=== PATIENT | female | born 1965 | race American Indian/Alaskan Native ===

== ENCOUNTER 2021-01-01 23:49 | Emergency (ER) | payer OTHER ==
[2021-01-02] MEDS ORDERED: MORPHINE 4 MG/1 ML INJ IV ONE (02:26)
[2021-01-02] MEDS ORDERED: SODIUM CHLORIDE 0.9% 1000 ML 1,000 ML IV ONE (02:26)
[2021-01-02] MEDS ORDERED: KETOROLAC 30 MG/1 ML INJ IV ONE (02:26)
[2021-01-02] MEDS ORDERED: ONDANSETRON 4 MG/2 ML INJ IV ONE (02:26)
--- NOTE | 2021-01-02 03:49 | Cat Scan Report ---
CT ABDOMEN AND PELVIS WITHOUT IV CONTRAST INDICATION: Right flank pain, h/o kidney stones. COMPARISON: CT 11/04/2020 TECHNIQUE: All CT scans at this facility use dose modulation, automated exposure control, iterative reconstructi on or weight based dosing, when appropriate, to reduce radiation dose to as low as reasonably achieva ble. FINDINGS: Lung Bases: No significant abnormality. Skeletal System: No acute abnormality. ABDOMEN: Liver: No significant abnormality. Gallbladder: No significant abnormality. Bile Ducts: No significant abnormality. Pancreas: No significant abnormality. Spleen: No significant abnormality. Adrenals: No significant abnormality. Right Kidney: Chronic obstruction of the right kidney is again noted. The previously seen right perin ephric abscess is no longer visualized. There is mild diffuse right perinephric stranding. The right ureter is dilated down to the midportion. No nephrolithiasis. Left Kidney: No significant abnormality. Upper GI tract: No significant abnormality. Lymph Nodes: Retroperitoneal adenopathy is again noted. Aorta: No significant abnormality. Additional Findings: No significant abnormality. PELVIS: Colon: No acute abnormality. Urinary Bladder and Distal Ureters: No significant abnormality. Appendix: No significant abnormality. Lymph Nodes: No significant adenopathy. Additional Findings: None. IMPRESSION: 1. Persistent/chronic right hydroureteronephrosis with caliber change in the mid to distal ureter. A s suggested on the prior CT, this could be due to noncalcific debris causing chronic obstruction. Int rinsic ureteral lesion/neoplasm could have this appearance. Mild retroperitoneal adenopathy is stable . 2. Previously seen lateral right perinephric abscess is no longer visualized. There is right perinep hric stranding which is suggestive of pyelonephritis, possibly postobstructive. Signer Name: Homero Pride MD Signed: 01/02/2021 3:45 AM Workstation Name: [id number]
[2021-01-02 03:55] LABS: Alanine Aminotransferase 14 units/L (7-56); Albumin 3.6 g/dL (3.9-5); Blood Urea Nitrogen 13 mg/dL (7-17); Hemolysis Index 2
[2021-01-02 03:56] LABS: BUN/Creatinine Ratio 22
[2021-01-02] MEDS ORDERED: TAMSULOSIN 0.4 MG CAP PO ONE ×2 (03:58→06:30)
[2021-01-02] MEDS ORDERED: cefTRIAXone/NS 1 GM/50 ML 1 GM/50 ML BAG IV ONE (03:58)
--- NOTE | 2021-01-02 04:03 | Event Note ---
ED Screening Note Date of service: 01/02/21 Time: 03:25 ED Screening Note: Patient is a 55-year-old -Vin[place] female with a history of chronic kidney stones and hypertension who presents to the ED with complaint of acute onset persistent severe right flank pain that radiates to the right lower quadrant area for the last 1 week, worse in the last 2 days. Patient states that she has not been able to sleep because of worsening right flank pain. Patient also complains of nausea and vomiting. Patient states that she was diagnosed with kidney stones about a week ago by her primary care physician and was advised to come to the ED for evaluation. Patient states that she had no means of transportation to the ED and therefore came to the ED tonight for further evaluation because of worsening pain. Patient denies fever, chills, nausea, vomiting, hematuria, vaginal bleeding, vaginal discharge, traumatic injury, heavy lifting, chest pain or shortness of breath, diarrhea or change in vision, urinary frequency and urgency. This initial assessment/diagnostic orders/clinical plan/treatment(s) is/are subject to change based on patients health status, clinical progression and re- assessment by fellow clinical providers in the ED. Further treatment and workup at subsequent clinical providers discretion. Patient/guardian urged not to elope from the ED as their condition may be serious if not clinically assessed and managed. Initial orders include: CBC, CMP, UA, lipase, CT abdomen pelvis without contrast
[2021-01-02 04:04] LABS: Basophils % (Auto) 0.4 % (0.0-1.8); Hematocrit 34.1 % (30.3-42.9); Hemoglobin 11.3 gm/dl (10.1-14.3); Mean Corpuscular HGB Conc 33 % (30-34); Mean Corpuscular Volume 89 fl (79-97); Monocytes # (Auto) 0.8 K/mm3 (0.0-0.8); Monocytes % (Auto) 8.6 % (0.0-7.3); Platelet Count 310 K/mm3 (140-440); Red Blood Count 3.86 M/mm3 (3.65-5.03); Red Cell Distribution Width 16.2 % (13.2-15.2)
[2021-01-02 04:41] LABS: Bacteria,Urine 1+ /HPF (Negative); Bilirubin,Urine NEG (Negative); Blood,Urine SM (Negative); Color,Urine Yellow (Yellow); Mucus,Urine FEW /HPF; Urobilinogen,Urine < 2.0 mg/dL (<2.0)
--- NOTE | 2021-01-02 06:17 | Emergency Department Report ---
ED Abdominal Pain HPI - General Chief Complaint: Abdominal Pain Stated Complaint: RT FLANK PAIN Source: patient, EMS Mode of arrival: Ambulatory Limitations: No Limitations - History of Present Illness Initial Comments: Patient is a 55-year-old -Y[place]i female with a history of chronic kidney stones and hypertension who presents to the ED with complaint of acute onset persistent severe right flank pain that radiates to the right lower quadrant area for the last 1 week, worse in the last 2 days. Patient states that she has not been able to sleep because of worsening right flank pain. Patient also complains of nausea and vomiting. Patient states that she was diag nosed with kidney stones about a week ago by her primary care physician and was advised to come to the ED for evaluation. Patient states that she had no means of transportation to the ED and therefore came to the ED tonight for further evaluation because of worsening pain. Patient states that her urologist in [place], [place] had performed a biopsy on her right kidney and advised that she may be having cancer in the right kidney and that during her next appointment which is scheduled for December, she shall be informed on the next course of action. Patient denies fever, chills, nausea, vomiting, hematuria, vaginal bleeding, vaginal discharge, traumatic injury, heavy lifting, chest pain or shortness of breath, diarrhea or change in vision, urinary frequency and urgency. MD Complaint: abdominal pain, flank pain (Right flank pain), other (Nausea and vomiting; recent diagnosis of kidney stone) -: Sudden, week(s) (1 ) Location: RLQ, R flank Radiation: RLQ, R flank Migration to: no migration Severity: severe Severity scale (0 -10): 10 Quality: cramping, aching, sharp Consistency: constant Improves With: nothing Worsens With: nothing Associated Symptoms: denies other symptoms, nausea, vomiting, anorexia. denies: diarrhea, fever, chills, constipation, dysuria, hematemesis, hematochezia, melena, hematuria, syncope - Related Data Home Medications Medication Instructions Recorded Confirmed Last Taken hydroCHLOROthiazide [HCTZ] 25 mg PO QDAY 11/03/20 11/03/20 Unknown Previous Rx's Medication Instructions Recorded Last Taken Type AtorvaSTATin [Lipitor] 40 mg PO QHS #30 tablet 11/07/20 Unknown Rx Cyclobenzaprine HCl [Flexeril 5 MG 5 mg PO TID #30 11/07/20 Unknown Rx TAB] Losartan [Cozaar] 50 mg PO QDAY #30 tablet 11/07/20 Unknown Rx buPROPion SR [Wellbutrin SR] 150 mg PO BID #60 tablet 11/07/20 Unknown Rx Ketorolac [Toradol] 10 mg PO Q8H PRN #15 tablet 01/02/21 Unknown Rx Ondansetron [Zofran Odt] 4 mg PO Q8HR PRN #20 tab.rapdis 01/02/21 Unknown Rx Sulfamethoxazole/Trimethoprim 1 each PO Q12H #20 tablet 01/02/21 Unknown Rx [Bactrim DS TAB] Tamsulosin [Flomax] 0.4 mg PO QDAY #10 cap 01/02/21 Unknown Rx traMADoL [Ultram] 50 mg PO Q6HR PRN #12 tablet 01/02/21 Unknown Rx Allergies Allergy/AdvReac Type Severity Reaction Status Date / Time No Known Allergies Allergy Verified 11/03/20 21:24 ED Review of Systems ROS: Stated complaint: RT FLANK PAIN Other details as noted in HPI Constitutional: denies: chills, fever Eyes: denies: eye pain, eye discharge, vision change ENT: denies: ear pain, throat pain Respiratory: denies: cough, shortness of breath, wheezing Cardiovascular: denies: chest pain, palpitations Endocrine: no symptoms reported Gastrointestinal: abdominal pain (Right flank pain and right lower quadrant pain), nausea, vomiting. denies: diarrhea Genitourinary: denies: urgency, dysuria, discharge Musculoskeletal: denies: back pain, joint swelling, arthralgia Skin: denies: rash, lesions Neurological: denies: headache, weakness, paresthesias Psychiatric: denies: anxiety, depression Hematological/Lymphatic: denies: easy bleeding, easy bruising ED Past Medical Hx - Past Medical History Previous Medical History?: Yes Hx Hypertension: Yes Hx Heart Attack/AMI: No Hx Liver Disease: No Hx Renal Disease: Yes (Renal Abcess; Pyelonephritis) Hx Seizures: No Hx COPD: No Additional medical history: elevated cholesterol - Surgical History Past Surgical History?: Yes Hx Internal Defibrillator: No Additional Surgical History: Csection, UFE 2005 - Social History Smoking Status: Former Smoker - Medications Home Medications: Home Medications Medication Instructions Recorded Confirmed Last Taken Type hydroCHLOROthiazide [HCTZ] 25 mg PO QDAY 11/03/20 11/03/20 Unknown History AtorvaSTATin [Lipitor] 40 mg PO QHS #30 tablet 11/07/20 Unknown Rx Cyclobenzaprine HCl [Flexeril 5 MG 5 mg PO TID #30 11/07/20 Unknown Rx TAB] Losartan [Cozaar] 50 mg PO QDAY #30 tablet 11/07/20 Unknown Rx buPROPion SR [Wellbutrin SR] 150 mg PO BID #60 tablet 11/07/20 Unknown Rx Ketorolac [Toradol] 10 mg PO Q8H PRN #15 tablet 01/02/21 Unknown Rx Ondansetron [Zofran Odt] 4 mg PO Q8HR PRN #20 tab.rapdis 01/02/21 Unknown Rx Sulfamethoxazole/Trimethoprim 1 each PO Q12H #20 tablet 01/02/21 Unknown Rx [Bactrim DS TAB] Tamsulosin [Flomax] 0.4 mg PO QDAY #10 cap 01/02/21 Unknown Rx traMADoL [Ultram] 50 mg PO Q6HR PRN #12 tablet 01/02/21 Unknown Rx ED Physical Exam - General Limitations: No Limitations General appearance: alert, in no apparent distress - Head Head exam: Present: atraumatic, normocephalic, normal inspection - Eye Eye exam: Present: normal appearance, PERRL, EOMI Pupils: Present: normal accommodation - ENT ENT exam: Present: normal exam, normal orophraynx, mucous membranes moist, TM's normal bilaterally, normal external ear exam - Neck Neck exam: Present: normal inspection, full ROM - Respiratory Respiratory exam: Present: normal lung sounds bilaterally. Absent: respiratory distress, wheezes, rales, stridor, chest wall tenderness, accessory muscle use - Cardiovascular Cardiovascular Exam: Present: regular rate, normal rhythm, normal heart sounds. Absent: systolic murmur, diastolic murmur, rubs, gallop - GI/Abdominal GI/Abdominal exam: Present: soft, tenderness (Palpable right flank tenderness), normal bowel sounds. Absent: distended, guarding, rebound, hyperactive bowel sounds, hypoactive bowel sounds, organomegaly, bruit - Extremities Exam Extremities exam: Present: normal inspection, full ROM, normal capillary refill - Back Exam Back exam: Present: normal inspection, full ROM. Absent: tenderness, CVA tenderness (R), CVA tenderness (L), muscle spasm, paraspinal tenderness, vertebral tenderness - Neurological Exam Neurological exam: Present: alert, oriented X3, CN II-XII intact, normal gait, reflexes normal - Psychiatric Psychiatric exam: Present: normal affect, normal mood - Skin Skin exam: Present: warm, dry, intact, normal color. Absent: rash ED Course Vital Signs 01/02/21 01/02/21 01/02/21 02:19 03:03 03:04 Temperature 97.9 F Pulse Rate 69 Respiratory 20 20 20 Rate Blood Pressure 180/78 [Left] O2 Sat by Pulse 99 Oximetry ED Medical Decision Making - Lab Data Result diagrams: 01/02/21 02:35 01/02/21 02:35 - Radiology Data Radiology results: report reviewed, image reviewed [address] [address] Cat Scan Report Signed Patient: MARTÍN URIARTE MR#: [id number] : 1965 Acct:[id number] Age/Sex: 55 / F ADM Date: 01/01/21 Loc: ED Attending Dr: Ordering Physician: TRENTON VITALE Date of Service: 01/02/21 Procedure(s): CT abdomen pelvis wo con Accession Number(s): [id number] cc: TRENTON VITALE CT ABDOMEN AND PELVIS WITHOUT IV CONTRAST INDICATION: Right flank pain, h/o kidney stones. COMPARISON: CT 11/04/2020 TECHNIQUE: All CT scans at this facility use dose modulation, automated exposure control, iterative reconstruction or weight based dosing, when appropriate, to reduce radiation dose to as low as reasonably achievable. FINDINGS: Lung Bases: No significant abnormality. Skeletal System: No acute abnormality. ABDOMEN: Liver: No significant abnormality. Gallbladder: No significant abnormality. Bile Ducts: No significant abnormality. Pancreas: No significant abnormality. Spleen: No significant abnormality. Adrenals: No significant abnormality. Right Kidney: Chronic obstruction of the right kidney is again noted. The previously seen right perinephric abscess is no longer visualized. There is mild diffuse right perinephric stranding. The right ureter is dilated down to the midportion. No nephrolithiasis. Left Kidney: No significant abnormality. Upper GI tract: No significant abnormality. Lymph Nodes: Retroperitoneal adenopathy is again noted. Aorta: No significant abnormality. Additional Findings: No significant abnormality. PELVIS: Colon: No acute abnormality. Urinary Bladder and Distal Ureters: No significant abnormality. Appendix: No significant abnormality. Lymph Nodes: No significant adenopathy. Additional Findings: None. IMPRESSION: 1. Persistent/chronic right hydroureteronephrosis with caliber change in the mid to distal ureter. As suggested on the prior CT, this could be due to noncalcific debris causing chronic obstruction. Intrinsic ureteral lesion/neoplasm could have this appearance. Mild retroperitoneal adenopathy is stable. 2. Previously seen lateral right perinephric abscess is no longer visualized. There is right perinephric stranding which is suggestive of pyelonephritis, possibly postobst ructive. Signer Name: Homero Pride MD Signed: 01/02/2021 3:45 AM Workstation Name: [id number] Transcribed By: PAIGE Dictated By: Homero Pride MD Electronically Authenticated By: Homero Pride MD Signed Date/Time: 01/02/21344 DD/ 7 TD/TT: Print - Medical Decision Making This is a 55-year-old -Y[place] female with a history of chronic kidney stones and hypertension who presents to the ED with complaint of acute onset persistent severe right flank pain that radiates to the right lower quadrant area for the last 1 week, worse in the last 2 days. Patient states that she has not been able to sleep because of worsening right flank pain. Patient also complains of nausea and vomiting. Patient states that she was diagnosed with kidney stones about a week ago by her primary care physician and was advised to come to the ED for evaluation. Patient states that she had no means of transportation to the ED and therefore came to the ED tonight for further evaluation because of worsening pain. Patient states that her urologist in [place], [place] Dr. Causey, had performed a biopsy on her right kidney and advised that she may be having cancer in the right kidney and that during her next appointment which is scheduled for December, she shall be informed on the next course of action. In the ED, patient is alert and oriented x3 and is not in any distress but appears to be in significant pain, crying and actively vomiting during the physical exam. Patient was treated for pain in the ED and also treated for nausea and vomiting, also given normal saline 1 L IV bolus x1. Lab test results were reviewed and are all nonactionable except for urinalysis that showed significant urinary tract infection. Abdomen pelvis CT scan without contrast showed persistent/chronic right hydroureteronephrosis with caliber change in the mid to distal ureter. As suggested on the prior CT, this could be due to noncalcific debris causing chronic obstruction. Intrinsic ureteral lesion/neoplasm could have this appearance. Mild retroperitoneal adenopathy is stable. However, a previously seen lateral right perinephric abscess is no longer visualized. There is right perinephric stranding which is suggestive of pyelonephritis, possibly postobstructive. Patient was also treated in the ED with Rocephin 1 g IV x1. These findings were discussed with the ED attending physician Dr. Nair who advised that the patient may be discharged home on pain medications and antibiotics and have her follow-up with her urologist further evaluation. Patient already is aware that she may be having right kidney cancer based on the biopsy report communicated to her by the urologist about a week ago. Patient has an appointment with a urologist on January 05, 2021 to discuss the next course of action and treatment plans. On reevaluation, patient's pain resolved with medications. Patient was therefore discharged home on pain medications and antibiotics and advised to follow-up with her urologist Dr. Causey as previously scheduled on , January 05, 2021 for further evaluation. Patient was advised return to the ED immediately if symptoms get worse. - Differential Diagnosis kidney stones; pyelonephritis; Kidney neoplasm; Fibroids; appendicitis Critical care attestation.: If time is entered above; I have spent that time in minutes in the direct care of this critically ill patient, excluding procedure time. ED Disposition Clinical Impression: Acute abdominal pain in right flank, Acute urinary tract infection, White nephrosis of right kidney, Nausea and vomiting in adult patient Disposition: DC-01 TO HOME OR SELFCARE Is pt being admited?: No Does the pt Need Aspirin: No Condition: Stable Instructions: Abdominal Pain (ED), Flank Pain, Adult, [id number], Nausea and Vomiting, Adult, [id number], Urinary Tract Infection, Adult, [id number] Additional Instructions: Take medication with food, drink plenty of fluids and follow-up with your urologist as previously scheduled for January 05, 2021 for further evaluation. Return to the ED immediately if symptoms get worse. Prescriptions: Sulfamethoxazole/Trimethoprim [Bactrim DS TAB] 1 each PO Q12H #20 tablet Tamsulosin [Flomax] 0.4 mg PO QDAY #10 cap Ketorolac [Toradol] 10 mg PO Q8H PRN #15 tablet PRN Reason: Pain traMADoL [Ultram] 50 mg PO Q6HR PRN #12 tablet PRN Reason: Pain Ondansetron [Zofran Odt] 4 mg PO Q8HR PRN #20 tab.rapdis PRN Reason: Nausea Referrals: HAZEL MOSELEY MD [Staff Physician] - 3-5 Days Time of Disposition: 06:22 Print Language: WELSH
[2021-01-02 07:50] VITALS: BP 155/77
== END 2021-01-02 07:15 | disposition home or self-care (01) ==
LOC: ED 23:49
DX: N39.0 Urinary tract infection, site not specified (principal); N13.30 Unspecified hydronephrosis; R10.31 Right lower quadrant pain; R11.2 Nausea with vomiting, unspecified; I10 Essential (primary) hypertension; Z98.890 Other specified postprocedural states; Z87.891 Personal history of nicotine dependence
CPT/HCPCS: 36415; 74176; 80053; 81001; 83690; 85025; 87086; 96361; 96365; 96375; 99284; J0696; J1885; J2270; J2405; J7030

== ENCOUNTER 2022-04-07 05:24 | Emergency (ER) | payer OTHER ==
[2022-04-07 05:33] VITALS: BP 156/76
== END 2022-04-08 10:58 | disposition left against medical advice (07) ==
LOC: ED 05:24
DX: M54.9 Dorsalgia, unspecified (principal); Z53.21 Procedure and treatment not carried out due to patient leaving prior to being seen by health care provider